=== PATIENT | male | born 1945 | race Two or more races ===

== ENCOUNTER 2021-11-24 09:36 | Emergency (ER) | payer OTHER, MEDICARE ==
[~2021-11-24] VITALS: Ht 175.3 cm; Wt 75.0 kg
[2021-11-24 09:42] VITALS: BP 159/87
[2021-11-24] MEDS ORDERED: GABA-530 PO (09:58)
[2021-11-24] MEDS ORDERED: LIDO700A32 TOP (10:01)
== END 2021-11-24 10:07 | disposition home or self-care (01) ==
LOC: ER 09:36
DX: B02.9 Zoster without complications (principal); R07.81 Pleurodynia; K76.9 Liver disease, unspecified; E11.9 Type 2 diabetes mellitus without complications; Z85.9 Personal history of malignant neoplasm, unspecified; Z79.899 Other long term (current) drug therapy
CPT/HCPCS: 99283